=== PATIENT | female | born 1995 | race African-American/Black ===

== ENCOUNTER 2018-06-29 19:49 | Emergency (ER) | payer SELFPAY ==
[~2018-06-29] VITALS: Ht 167.6 cm; Wt 83.9 kg
[2018-06-29 20:02] VITALS: BP 139/85
[2018-06-30] MEDS ORDERED: methylPREDNISolone SOD SUCC 125 MG/2 ML VL IM ONE (00:45)
[2018-06-30] MEDS ORDERED: IPRATROPIUM BROM 0.5 MG/2.5ML INH SOL NEB ONE (00:45)
[2018-06-30] MEDS ORDERED: ALBUTEROL SULF 2.5 MG/0.5ML(0.5%) NEB SOLN NEB ONE (00:45)
== END 2018-06-30 01:22 | disposition home or self-care (01) ==
LOC: ER 19:49
DX: J45.901 Unspecified asthma with (acute) exacerbation (principal)
CPT/HCPCS: 71046; 94640; 96372; 99283; J2930; J7611; J7644

== ENCOUNTER 2018-07-15 08:37 | Emergency (ER) | payer SELFPAY ==
[~2018-07-15] VITALS: Ht 165.1 cm; Wt 81.6 kg
[2018-07-15 08:58] VITALS: BP 153/77
[2018-07-15] MEDS ORDERED: ALBUTEROL SULF 2.5 MG/0.5ML(0.5%) NEB SOLN NEB ONE (09:15)
[2018-07-15] MEDS ORDERED: IPRATROPIUM BROM 0.5 MG/2.5ML INH SOL NEB ONE (09:15)
[2018-07-15] MEDS ORDERED: methylPREDNISolone SOD SUCC 125 MG/2 ML VL IM ONE (09:15)
== END 2018-07-15 09:44 | disposition home or self-care (01) ==
LOC: ER 08:37
DX: J45.901 Unspecified asthma with (acute) exacerbation (principal)
CPT/HCPCS: 94640; 96372; 99283; J2930; J7611; J7644

== ENCOUNTER 2023-09-19 18:24 | Emergency (ER) | payer MEDICAID, OTHER ==
[~2023-09-19] VITALS: Ht 167.6 cm; Wt 89.8 kg
[2023-09-19] MEDS ORDERED: AMOX500C2 PO (21:55)
[2023-09-19] MEDS ORDERED: BENZ200C64 PO (21:55)
[2023-09-19] MEDS ORDERED: ALBU108A5 IN (21:55)
[2023-09-19] MEDS ORDERED: PRED20TA2 PO (21:55)
[2023-09-19] MEDS: IPRATROPIUM BROM 0.5 MG/2.5ML INH SOL NEB ONE (21:59)
[2023-09-19] MEDS: ALBUTEROL SULF 2.5 MG/0.5ML(0.5%) NEB SOLN NEB ONE (22:00)
[2023-09-19] MEDS: methylPREDNISolone SOD SUCC 125 MG/2 ML VL IM ONE (22:25)
[2023-09-19 22:45] VITALS: BP 128/76; PULSE 88; RESP 18; TEMP 98
[2023-09-19 22:46] VITALS: O2SAT 100
== END 2023-09-19 22:55 | disposition home or self-care (01) ==
LOC: ER 18:24
DX: J45.909 Unspecified asthma, uncomplicated (principal)
CPT/HCPCS: 94640; 99283; J2930; J7644

== ENCOUNTER 2024-05-17 08:52 | Emergency (ER) | payer MEDICAID, OTHER ==
[~2024-05-17] VITALS: Ht 165.1 cm; Wt 80.3 kg
[~2024-05-17 08:52] MED LIST: ALBU108A5 IN; AMOX500C2 PO; BENZ200C64 PO; PRED20TA2 PO
[2024-05-17] MEDS: PANTOPRAZOLE 40 MG/10 ML VIAL INJ IV ONE (09:53)
[2024-05-17] MEDS: ONDANSETRON HCL 4 MG/2 ML VIAL IV ONE (09:53)
[2024-05-17] MEDS: SODIUM CHLORIDE 0.9% 1,000 ML IV ONE (09:54)
[2024-05-17 09:56] VITALS: PULSE 80; RESP 16; O2SAT 96
[2024-05-17 10:04] LABS: Urine Bacteria None Seen /hpf (None Seen)
[2024-05-17 10:25] LABS: Basophils # (auto) 0 10 ^3/uL (0-0.2); Basophils % (auto) 0.3 % (0.0-2.0); Eosinophils # (auto) 0 10 ^3/uL (0-0.8); Monocytes # (auto) 0.6 10 ^3/uL (0-1.3); Neutrophils # (auto) 8.3 10 ^3/uL (1.6-8.6); White Blood Cell 9.9 10^3/uL (4.4-10.8)
[2024-05-17 10:31] LABS: Alanine Aminotransferase 13 U/L (7-40); Albumin 4.8 g/dL (3.2-4.8); Alkaline Phosphatase 46 U/L (46-116); Anion Gap 7 (5-15); Aspartate Aminotransferase 14 U/L (13-40); BUN/Creatinine Ratio 8.2 (10.0-20.0); Blood Urea Nitrogen 6 mg/dL (9-23); Calcium 10.1 mg/dL (8.7-10.4); Carbon Dioxide 26 mmol/L (20-31); Chloride 105 mmol/L (98-107); Eosinophils % (auto) 0.4 % (0.0-7.0); Glucose 109 mg/dL (74-106); Hematocrit 28.4 % (36.0-46.0); Lipase 32 U/L (12-53); Lymphocytes % (auto) 9.9 % (10.0-50.0); Mean Corpuscular Hemoglobin 22.4 pg (28.0-32.0); Mean Corpuscular Hgb Conc. 31.8 g/dL (32.0-36.0); Mean Corpuscular Volume 70.4 fL (80.0-100.0); Monocytes % (auto) 5.9 % (0.0-12.0); Neutrophils % (auto) 83.5 % (37.0-80.0); Platelet Count (auto) 408 10^3/uL (140-450); Potassium 3.6 mmol/L (3.5-5.1); Red Blood Cells 4.03 10^6/uL (4.0-5.20); Red Cell Distribution Width 16.7 % (11.8-14.3); Sodium 138 mmol/L (136-145)
[2024-05-17 10:32] LABS: Bilirubin, Total 0.7 mg/dL (0.2-1.0); Total Protein 7.6 g/dL (5.7-8.2)
[2024-05-17 10:35] LABS: Urine Blood Negative /uL (Negative); Urine Clarity Clear (Clear); Urine Color Yellow (Yellow); Urine Mucus FEW (None Seen); Urine Protein, UAD 1+ (Negative); Urine Specific Gravity 1.027 (1.001-1.035); Urine Urobilinogen Normal (Negative); Urine WBC 1 /hpf (0 - 5)
[2024-05-17] MEDS: IOHEXOL 300 MG/ML 100ML BOTTLE IJ ONE (12:31)
[2024-05-17] MEDS: MORPHINE SULFATE 4 MG/ML SYR/VIAL IV ONE (12:44)
[2024-05-17] MEDS: KETOROLAC TROMETH 30 MG/ML 1ML VIAL IV ONE (13:03)
[2024-05-17 14:14] VITALS: BP 128/79; PULSE 86; RESP 18; TEMP 98; O2SAT 99
[2024-05-17] MEDS ORDERED: OXYC-900 PO (15:02)
[2024-05-17] MEDS ORDERED: DICY10CA PO (15:05)
== END 2024-05-17 15:10 | disposition home or self-care (01) ==
LOC: ER 08:52
DX: N83.201 Unspecified ovarian cyst, right side (principal); N83.202 Unspecified ovarian cyst, left side; J45.909 Unspecified asthma, uncomplicated; Z79.52 Long term (current) use of systemic steroids; Z32.02 Encounter for pregnancy test, result negative
CPT/HCPCS: 36415; 74177; 76856; 80053; 81001; 81025; 83690; 85025; 96361; 96374; 96375; 99285; J1885; J2405; J2470; J7030; Q9967

== ENCOUNTER 2024-06-09 07:24 | Day surgery (SDC) | payer MEDICAID ==
[2024-06-06 11:52] LABS: Basophils # (auto) 0.1 10 ^3/uL (0-0.2); Eosinophils # (auto) 0.3 10 ^3/uL (0-0.8); Lymphocytes # (auto) 1.5 10 ^3/uL (0.4-5.4); Mean Corpuscular Hemoglobin 22.5 pg (28.0-32.0); Mean Corpuscular Hgb Conc. 31.2 g/dL (32.0-36.0); Monocytes # (auto) 0.3 10 ^3/uL (0-1.3); White Blood Cell 4.3 10^3/uL (4.4-10.8)
[2024-06-06 11:55] LABS: Basophils % (auto) 2.1 % (0.0-2.0); Eosinophils % (auto) 7.3 % (0.0-7.0); Hematocrit 28.9 % (36.0-46.0); Lymphocytes % (auto) 35.8 % (10.0-50.0); Mean Corpuscular Volume 72.2 fL (80.0-100.0); Monocytes % (auto) 7.3 % (0.0-12.0); Neutrophils % (auto) 47.5 % (37.0-80.0); Nucleated Red Blood Cells % 0.3 %; Platelet Count (auto) 430 10^3/uL (140-450); Red Cell Distribution Width 18.8 % (11.8-14.3)
[2024-06-06 12:10] LABS: Urine Bacteria FEW /hpf (None Seen); Urine Blood TRACE /uL (Negative); Urine Clarity Clear (Clear); Urine Color Light-Yellow (Yellow); Urine Protein, UAD Negative (Negative); Urine Specific Gravity 1.021 (1.001-1.035); Urine Urobilinogen Normal (Negative); Urine WBC <1 /hpf (0 - 5)
[2024-06-06 12:16] LABS: Alanine Aminotransferase 12 U/L (7-40); Albumin 4.5 g/dL (3.2-4.8); Alkaline Phosphatase 44 U/L (46-116); Anion Gap 6 (5-15); Aspartate Aminotransferase 12 U/L (13-40); BUN/Creatinine Ratio 13.6 (10.0-20.0); Blood Urea Nitrogen 9 mg/dL (9-23); Carbon Dioxide 26 mmol/L (20-31); Chloride 107 mmol/L (98-107); Glucose 91 mg/dL (74-106); Potassium 3.8 mmol/L (3.5-5.1); Sodium 139 mmol/L (136-145)
[2024-06-06 12:17] LABS: Bilirubin, Total 0.4 mg/dL (0.2-1.0); Total Protein 7.2 g/dL (5.7-8.2)
[~2024-06-09] VITALS: Ht 165.1 cm; Wt 82.6 kg
[~2024-06-09 07:24] MED LIST changes: -AMOX500C2 PO; -BENZ200C64 PO; +FERR325T24 PO; +OXYC-900 PO; -PRED20TA2 PO
[2024-06-09 10:21] VITALS: RESP 13; TEMP 97.6; O2SAT 99
[2024-06-09] MEDS ORDERED: HYDROmorphone HCL 2 MG/ML VL/or syr IV PRN (10:30)
[2024-06-09] MEDS ORDERED: ONDANSETRON HCL 4 MG/2 ML VIAL IV ONE (10:30)
--- NOTE | 2024-06-09 10:30 | DVHOP ---
DATE OF SURGERY: 06/09/2024 PREOPERATIVE DIAGNOSES: * Chronic pelvic pain. * Right ovarian cyst. FINAL DIAGNOSES: * Chronic pelvic pain. * Bilateral ovarian endometriomas. * Pelvic endometriosis. * Adhesions to the posterior cul-de-sac. PROCEDURES PERFORMED: Operative laparoscopy with right salpingo-oophorectomy, left partial oophorectomy, lysis of adhesions. SURGEON: Jose Hwang DO SEO ASSOCIATE: Arturo Caro NP TYPE OF ANESTHESIA: General endotracheal. ANESTHESIOLOGIST: Savi Diaz MD INDICATION FOR PROCEDURE: The patient is a 28-year-old -[place] female. She has never been . She presented with painful periods and pelvic pain. She presented with ultrasound finding of a large symptomatic right adnexal mass approximately x 8cm. She was consented for surgery with removal of the ovary and tube. She understood the risks, benefits, and alternatives to surgery and informed consent was obtained. DESCRIPTION OF FINDINGS: An endometrioma of the right ovary approximately 8 cm in size, intraoperative rupture of the mass with chocolate-like material. The left ovary also contained a small 3 cm endometrioma that was removed by partial oophorectomy. The left fallopian tube contained adhesions to the posterior cul-de-sac but had an intact and normal fimbriated end. There were adhesions of the sigmoid colon to the left pelvic sidewall that were bluntly and sharply lysed. There was obliteration of the posterior cul de sac and endometriosis present on the uterosacral ligaments TECHNICAL PROCEDURE: After informed consent was obtained, the patient was taken to the operating room where she underwent smooth induction with general anesthesia. The patient was placed in dorsal lithotomy position in Mina stirrups. The vagina, perineum, abdomen were thoroughly prepped and the patient sterilely draped in usual fashion. A pelvic exam was then performed under anesthesia with the above-noted findings. A weighted speculum was placed into the patient's vagina. The anterior lip of the cervix was grasped with a single-tooth tenaculum. Uterine cavity sounded to 8 cm. A HUMI uterine manipulator was placed transcervically and the balloon inflated. Next, a transurethral Briceno was placed. All instrumentation was removed from the patient's vagina. Attention was then placed in the patient's abdomen where a 5 mm incision was made at the base of the umbilicus. The umbilical stalk was elevated with Wandy clamps. Through this small incision, a Veress needle was introduced into the peritoneal cavity. Intraperitoneal placement was confirmed by the hanging water drop test. Carbon dioxide gas was infused and pneumoperitoneum obtained. Using a 5 mm Optiview trocar, entry into the abdomen was made through the umbilicus. All layers of the abdomen were visualized as we entered the abdomen. The entry was atraumatic. Intraperitoneal placement was confirmed directly with the laparoscope. Survey of the abdomen and pelvis revealed the above-noted findings. A 12 mm laparoscopic port was placed to the left of midline under direct visualization and a 5 mm port placed to the right of midline under direct visualization. Next, we manipulated the uterus from below with the HUMI manipulator. Survey of the abdomen and pelvis revealed the above-noted findings. Extensive photos were obtained. The patient had extensive endometriosis and complete obliteration of the posterior cul-de-sac. There was nodularity and endometriotic implants and scar tissue with adhesions over the uterosacral ligaments and the left pelvic sidewall had adhesions of the rectosigmoid colon. The adhesions of the colon were sharply and bluntly dissected and freed from its attachment to the sidewall. Next, the endometrioma on the right was manipulated. The endometrioma burst and therefore the endometrioma was drained of the chocolate fluid. Next, the endometrioma in the right ovary was removed by dividing the infundibulopelvic ligament with the LigaSure device. Hemostasis was confirmed. Next, the uteroovarian and the proximal attachment of the fallopian tube to the uterus were dissected and transected using the LigaSure device. Upon completion of this dissection, the right tube and ovary were placed into the anterior cul-de-sac. Next, the adhesions in the posterior cul-de-sac were sharply and bluntly lysed. The fallopian tube was freed on the left and a left partial oophorectomy performed which contained also a 3 cm endometrioma. The specimens were placed into Endo Catch bags, delivered through the 12 mm port, and submitted to pathology as specimens. Next, the abdomen was thoroughly irrigated with normal saline. Hemostasis was confirmed. We placed Surgiflo over the raw surfaces of the peritoneum with good hemostasis at it. Next, the 12 mm port was closed using #1 Vicryl with good tissue approximation. The laparoscopic ports were removed under direct visualization after the pneumoperitoneum was released. The skin incisions were closed in subcuticular fashion with 3-0 Monocryl and a thin layer of Dermabond was placed over the incisions. Each incision was injected with approximately 5-7 mL of 1% lidocaine with epinephrine at the conclusion of surgery. Following this, the transcervical manipulator and the transurethral Briceno were removed. There was no bleeding from the cervix or vagina. The patient was taken out of lithotomy position, awakened, and taken to recovery room in stable condition. INTRAOPERATIVE COMPLICATIONS: None. ESTIMATED BLOOD LOSS: 75 mL. POSTOPERATIVE CONDITION: Stable. SPECIMENS: Right fallopian tube and ovary. Left partial ovary. COMPLICATIONS: None. MEDICATIONS: The patient received 2 grams of Ancef prior to skin incision. DO MICHAEL Rodriguez/RYAN TID: [id number] RECEIPT: [id number] MTDD
[2024-06-09 11:45] VITALS: BP 130/69; PULSE 74; RESP 14; O2SAT 100
[2024-06-09] MEDS ORDERED: HYDR-4902 PO (11:55)
--- NOTE | 2024-06-10 23:26 | DVHHP ---
ADMIT DATE: 06/09/2024 CHIEF COMPLAINT: Chronic pelvic pain. HISTORY OF PRESENT ILLNESS: This is a nuligravid 28-year-old -Irish female. The patient has had chronic pelvic pain and pain with menstrual cycles for many years. Ultrasound reveals a large right-sided adnexal mass approximately 8 cm in size. PAST MEDICAL HISTORY: Negative. PAST SURGICAL HISTORY: Negative. MEDICATIONS: None. ALLERGIES: No known drug allergies. SOCIAL HISTORY: The patient is single. She denies any tobacco, alcohol or illicit drug use. FAMILY HISTORY: Noncontributory. The patient denies alcohol, drug or tobacco use. REVIEW OF SYSTEMS: Fourteen point review of systems is negative. PHYSICAL EXAMINATION: VITAL SIGNS: Stable. The patient is afebrile. GENERAL: She is alert, in no acute distress, pleasant, young female. HEENT: Normocephalic, atraumatic. Extraocular muscles intact. NECK: Supple, without any palpable thyromegaly. CHEST: Shows normal heart and lung sounds without murmurs or gallops. ABDOMEN: Soft. She is tender in the right lower quadrant. No peritoneal signs or guarding. EXTREMITIES: Without cyanosis or edema. PELVIC: Deferred. ASSESSMENT: * Chronic pelvic pain. * Right adnexal mass. * Suspected endometriosis. PLAN: The patient will be admitted to same day surgery for pelvic exam under anesthesia, operative laparoscopy with ovarian cystectomy versus right salpingo-oophorectomy, possible left ovarian cystectomy, possible laparotomy. The risks, benefits, and alternatives of the procedure have been discussed with the patient and informed consent has been obtained. The patient understands risks of pain, scar, bleeding, infection, injury to bowel, bladder, adjacent organs, possible fistula formation. The patient understands that if endometriosis is extensive, she may need continued therapy after surgery. DO MICHAEL Rodriguez TID: [id number] RECEIPT: [id number] [facility]
== END 2024-06-09 12:20 | disposition home or self-care (01) ==
LOC: SUR 07:24
PROVIDERS: ATTEND Obstetrics & Gynecology
DX: N80.123 Deep endometriosis of bilateral ovaries (principal); N80.329 Endometriosis of the posterior cul-de-sac, unspecified depth; G89.29 Other chronic pain; K66.0 Peritoneal adhesions (postprocedural) (postinfection); N73.6 Female pelvic peritoneal adhesions (postinfective); N83.201 Unspecified ovarian cyst, right side; J45.909 Unspecified asthma, uncomplicated; D64.9 Anemia, unspecified; Z79.899 Other long term (current) drug therapy
CPT/HCPCS: 36415; 80053; 81001; 81025; 84702; 85025; 86850; 86900; 86901